=== PATIENT | female | born 1995 | race American Indian/Alaskan Native ===

== ENCOUNTER 2020-02-24 12:19 | Emergency (ER) | payer OTHER ==
[2020-02-24 12:31] VITALS: BP 125/79
--- NOTE | 2020-02-24 13:09 | Event Note ---
ED Screening Note ED Screening Note: 24-year-old female who was Bernie is here visiting presents emergency department complaining of having pelvic pain and an/cramping with vaginal bleeding. Just saw her [employer] in [place] this past Sunday reported to be 9 weeks states that the bleeding and cramping are progressively worsening since the onset. No fevers, chills, sweats no nausea vomiting This initial assessment/diagnostic orders/clinical plan/treatment(s) is/are subject to change based on patients health status, clinical progression and re- assessment by fellow clinical providers in the ED. Further treatment and workup at subsequent clinical providers discretion. Patient/guardian urged not to elope from the ED as their condition may be serious if not clinically assessed and managed. Initial orders include: Labs, urinalysis, ultrasound
[2020-02-24 14:06] LABS: Basophils % (Auto) 0.6 % (0.0-1.8); Eosinophils # (Auto) 0.1 K/mm3 (0.0-0.4); Eosinophils % (Auto) 1.7 % (0.0-4.3); Hemoglobin 13.6 gm/dl (10.1-14.3); Lymphocytes # (Auto) 1.1 K/mm3 (1.2-5.4); Lymphocytes % (Auto) 18.1 % (13.4-35.0); Mean Corpuscular HGB Conc 33 % (30-34); Mean Corpuscular Volume 84 fl (79-97); Monocytes # (Auto) 0.8 K/mm3 (0.0-0.8); Monocytes % (Auto) 13.6 % (0.0-7.3); Platelet Count 329 K/mm3 (140-440); Red Blood Count 4.87 M/mm3 (3.65-5.03); Red Cell Distribution Width 13.3 % (13.2-15.2)
[2020-02-24 14:24] LABS: Bacteria,Urine 3+ /HPF (Negative); Bilirubin,Urine NEG (Negative); Blood,Urine LG (Negative); Color,Urine Yellow (Yellow); Mucus,Urine FEW /HPF; Urobilinogen,Urine < 2.0 mg/dL (<2.0)
[2020-02-24 14:33] LABS: RBC,Urine > 182.0 /HPF (0.0-6.0)
--- NOTE | 2020-02-24 15:24 | Ultrasound Report ---
ULTRASOUND OBSTETRIC INDICATION / CLINICAL INFORMATION: Vaginal bleeding. Clinical Gestational Age (GA) in weeks, days: 9, 6 TECHNIQUE: Transabdominal and Transvaginal. COMPARISON: None available. FINDINGS: GESTATIONAL SAC: None seen. YOLK SAC: None seen. EMBRYO/FETUS: No intrauterine . Endometrial stripe is mildly thickened measuring 1.4 cm. ADNEXA: No adnexal mass or fluid collection. FREE FLUID: None. ADDITIONAL FINDINGS: None. IMPRESSION: 1. No intrauterine . 2. No adnexal mass or fluid collection. 3. Mildly prominent endometrial complex. Signer Name: Katlyn Ortiz MD Signed: 02/24/2020 3:20 PM Workstation Name: [id number]
[2020-02-24] MEDS ORDERED: LIDOCAINE-MPF (1%) 10 MG/1 ML VIAL 5 ML INFILTRATI ONE (16:57)
[2020-02-24] MEDS ORDERED: HYDROcodone/ACETAMINOPHEN 5-325 MG TAB PO ONE (16:57)
--- NOTE | 2020-02-24 16:58 | Emergency Department Report ---
ED Female HPI - General Chief complaint: Vaginal Bleeding Stated complaint: BAD CRAMPS POSSIBLE MISCARRIAGE Time Seen by Provider: 02/24/20 16:49 Source: patient Mode of arrival: Ambulatory Limitations: No Limitations - Related Data Previous Rx's Medication Instructions Recorded Last Taken Type Ciprofloxacin HCl [Ciprofloxacin 500 mg PO BID 7 Days #14 tab 02/24/20 Unknown Rx TAB] Ibuprofen [Motrin 800 MG tab] 800 mg PO Q8HR PRN #30 tablet 02/24/20 Unknown Rx Allergies Allergy/AdvReac Type Severity Reaction Status Date / Time No Known Allergies Allergy Unverified 02/24/20 13:09 ED Review of Systems ROS: Stated complaint: BAD CRAMPS POSSIBLE MISCARRIAGE Other details as noted in HPI ED Past Medical Hx - Past Medical History Previous Medical History?: No - Surgical History Past Surgical History?: No - Social History Smoking Status: Never Smoker Substance Use Type: None - Medications Home Medications: Home Medications Medication Instructions Recorded Confirmed Last Taken Type Ciprofloxacin HCl [Ciprofloxacin 500 mg PO BID 7 Days #14 tab 02/24/20 Unknown Rx TAB] Ibuprofen [Motrin 800 MG tab] 800 mg PO Q8HR PRN #30 tablet 02/24/20 Unknown Rx ED Physical Exam - General Limitations: No Limitations ED Course Vital Signs 02/24/20 12:27 Temperature 99.2 F Pulse Rate 99 H Respiratory 16 Rate Blood Pressure 125/79 [Right] O2 Sat by Pulse 97 Oximetry ED Medical Decision Making - Lab Data Result diagrams: 02/24/20 13:44 - Radiology Data Radiology results: report reviewed, image reviewed Findings Reporting MD: Katlyn Ortiz Dictation Time: February 24, 2020 14:20 Patient Care Technician Instructor: Not available Data Security Coordinator Date: ULTRASOUND OBSTETRIC INDICATION / CLINICAL INFORMATION: Vaginal bleeding. Clinical Gestational Age (GA) in weeks, days: 9, 6 TECHNIQUE: Transabdominal and Transvaginal. COMPARISON: None available. FINDINGS: GESTATIONAL SAC: None seen. YOLK SAC: None seen. EMBRYO/FETUS: No intrauterine . Endometrial stripe is mildly thickened measuring 1.4 cm. ADNEXA: No adnexal mass or fluid collection. FREE FLUID: None. ADDITIONAL FINDINGS: None. IMPRESSION: 1. No intrauterine . 2. No adnexal mass or fluid collection. 3. Mildly prominent endometrial complex. Signer Name: Katlyn Ortiz MD Signed: 02/24/2020 2:20 PM Workstation Name: [id number] Findings Reporting MD: Katlyn Ortiz Dictation Time: February 24, 2020 14:20 Patient Care Technician Instructor: Not available Data Security Coordinator Date: ULTRASOUND OBSTETRIC INDICATION / CLINICAL INFORMATION: Vaginal bleeding. Clinical Gestational Age (GA) in weeks, days: 9, 6 TECHNIQUE: Transabdominal and Transvaginal. COMPARISON: None available. FINDINGS: GESTATIONAL SAC: None seen. YOLK SAC: None seen. EMBRYO/FETUS: No intrauterine . Endometrial stripe is mildly thickened measuring 1.4 cm. ADNEXA: No adnexal mass or fluid collection. FREE FLUID: None. ADDITIONAL FINDINGS: None. IMPRESSION: 1. No intrauterine . 2. No adnexal mass or fluid collection. 3. Mildly prominent endometrial complex. Signer Name: Katlyn Ortiz MD Signed: 02/24/2020 2:20 PM Workstation Name: [id number] Critical care attestation.: If time is entered above; I have spent that time in minutes in the direct care of this critically ill patient, excluding procedure time. ED Disposition Condition: Stable Referrals: PRIMARY CARE, [Primary Care Provider] - 3-5 Days
--- NOTE | 2020-02-24 17:43 | Emergency Department Report ---
ED Female HPI - General Chief complaint: Vaginal Bleeding Stated complaint: BAD CRAMPS POSSIBLE MISCARRIAGE Time Seen by Provider: 02/24/20 16:49 Source: patient Mode of arrival: Ambulatory Limitations: No Limitations - History of Present Illness Initial comments: 24-year-old female who is here visiting presents emergency department complaining of having pelvic pain and an/cramping with vaginal bleeding. Just saw her [employer] in [place] this past Sunday reported to be 9 weeks states that the bleeding and cramping are progressively worsening since the onset. No fevers, chills, sweats no nausea vomiting, pt is G2, P0, A1 Complaint: vaginal bleeding - Related Data Previous Rx's Medication Instructions Recorded Last Taken Type Acetaminophen [Tylenol] 1,000 mg PO Q6HR PRN #30 tablet 02/24/20 Unknown Rx Ciprofloxacin HCl [Ciprofloxacin 500 mg PO BID 7 Days #14 tab 02/24/20 Unknown Rx TAB] Allergies Allergy/AdvReac Type Severity Reaction Status Date / Time No Known Allergies Allergy Unverified 02/24/20 13:09 ED Review of Systems ROS: Stated complaint: BAD CRAMPS POSSIBLE MISCARRIAGE Other details as noted in HPI Constitutional: denies: chills, fever Eyes: denies: eye pain, eye discharge, vision change ENT: denies: ear pain, throat pain Respiratory: denies: cough, shortness of breath, wheezing Cardiovascular: denies: chest pain, palpitations Endocrine: no symptoms reported Gastrointestinal: abdominal pain. denies: nausea, vomiting, diarrhea, constipation Genitourinary: other (vaginal bleeding ). denies: urgency, dysuria, frequency, hematuria, discharge Musculoskeletal: denies: back pain, joint swelling, arthralgia Skin: denies: rash, lesions Neurological: denies: headache, weakness, paresthesias Psychiatric: denies: anxiety, depression Hematological/Lymphatic: denies: easy bleeding, easy bruising ED Past Medical Hx - Past Medical History Previous Medical History?: No - Surgical History Past Surgical History?: No - Social History Smoking Status: Never Smoker Substance Use Type: None - Medications Home Medications: Home Medications Medication Instructions Recorded Confirmed Last Taken Type Acetaminophen [Tylenol] 1,000 mg PO Q6HR PRN #30 tablet 02/24/20 Unknown Rx Ciprofloxacin HCl [Ciprofloxacin 500 mg PO BID 7 Days #14 tab 11/10/20 Unknown Rx TAB] ED Physical Exam - General Limitations: No Limitations General appearance: alert, in no apparent distress - Head Head exam: Present: atraumatic, normocephalic - Eye Eye exam: Present: normal appearance, EOMI Pupils: Present: normal accommodation - ENT ENT exam: Present: mucous membranes moist - Neck Neck exam: Present: normal inspection, full ROM. Absent: tenderness - Respiratory Respiratory exam: Present: normal lung sounds bilaterally. Absent: respiratory distress, wheezes, stridor, chest wall tenderness - Cardiovascular Cardiovascular Exam: Present: regular rate, normal rhythm, normal heart sounds. Absent: systolic murmur, diastolic murmur, rubs, gallop - GI/Abdominal GI/Abdominal exam: Present: soft, tenderness (bilat lower abd ), normal bowel sounds. Absent: distended, guarding, rebound, rigid, bruit, hernia - Rectal Rectal exam: Present: deferred - External exam: Present: other (exam deferred by patient ) - Extremities Exam Extremities exam: Present: normal inspection, full ROM. Absent: tenderness - Back Exam Back exam: Present: normal inspection, full ROM. Absent: tenderness, CVA tenderness (R), CVA tenderness (L) - Neurological Exam Neurological exam: Present: alert, oriented X3, CN II-XII intact, normal gait, reflexes normal - Psychiatric Psychiatric exam: Present: normal affect, normal mood - Skin Skin exam: Present: warm, dry, intact, normal color. Absent: rash ED Course Vital Signs 02/24/20 12:27 Temperature 99.2 F Pulse Rate 99 H Respiratory 16 Rate Blood Pressure 125/79 [Right] O2 Sat by Pulse 97 Oximetry ED Medical Decision Making - Lab Data Result diagrams: 02/24/20 13:44 Labs 02/24/20 02/24/20 02/24/20 13:44 13:44 13:59 WBC 5.9 RBC 4.87 Hgb 13.6 Hct 41.0 MCV 84 MCH 28 MCHC 33 RDW 13.3 Plt Count 329 Lymph % (Auto) 18.1 [place] % (Auto) 13.6 H Eos % (Auto) 1.7 Baso % (Auto) 0.6 Lymph # (Auto) 1.1 L [place] # (Auto) 0.8 Eos # (Auto) 0.1 Baso # (Auto) 0.0 Seg Neutrophils % 66.0 Seg Neutrophils # 3.9 HCG, Quant 4508 H Urine Color Yellow Urine Turbidity Slightly-cloudy Urine pH 6.0 Ur Specific [place] 1.015 Urine Protein 30 mg/dl Urine Glucose (UA) Neg Urine Ketones Neg Urine Blood Lg Urine Nitrite Pos Urine Bilirubin Neg Urine Urobilinogen < 2.0 Ur Leukocyte Esterase Lg Urine WBC (Auto) 56.0 H Urine RBC (Auto) > 182.0 U Epithel Cells (Auto) 4.0 Urine Bacteria (Auto) 3+ Urine Mucus Few Blood Type Ord Rhogam Gestat Weeks 02/24/20 Unknown WBC RBC Hgb Hct MCV MCH MCHC RDW Plt Count Lymph % (Auto) [place] % (Auto) Eos % (Auto) Baso % (Auto) Lymph # (Auto) [place] # (Auto) Eos # (Auto) Baso # (Auto) Seg Neutrophils % Seg Neutrophils # HCG, Quant Urine Color Urine Turbidity Urine pH Ur Specific [place] Urine Protein Urine Glucose (UA) Urine Ketones Urine Blood Urine Nitrite Urine Bilirubin Urine Urobilinogen Ur Leukocyte Esterase Urine WBC (Auto) Urine RBC (Auto) U Epithel Cells (Auto) Urine Bacteria (Auto) Urine Mucus Blood Type O POSITIVE Ord Rhogam Gestat Weeks Rh pos - Radiology Data Radiology results: report reviewed, image reviewed Findings Reporting MD: Katlyn Ortiz Dictation Time: February 24, 2020 14:20 Telephone Sales Representative: Not available Site Acquisition Specialist Date: ULTRASOUND OBSTETRIC INDICATION / CLINICAL INFORMATION: Vaginal bleeding. Clinical Gestational Age (GA) in weeks, days: 9, 6 TECHNIQUE: Transabdominal and Transvaginal. COMPARISON: None available. FINDINGS: GESTATIONAL SAC: None seen. YOLK SAC: None seen. EMBRYO/FETUS: No intrauterine . Endometrial stripe is mildly thickened measuring 1.4 cm. ADNEXA: No adnexal mass or fluid collection. FREE FLUID: None. ADDITIONAL FINDINGS: None. IMPRESSION: Findings Reporting MD: Katlyn Ortiz Dictation Time: February 24, 2020 14:20 Telephone Sales Representative: Not available Site Acquisition Specialist Date: ULTRASOUND OBSTETRIC INDICATION / CLINICAL INFORMATION: Vaginal bleeding. Clinical Gestational Age (GA) in weeks, days: 9, 6 TECHNIQUE: Transabdominal and Transvaginal. COMPARISON: None available. FINDINGS: GESTATIONAL SAC: None seen. YOLK SAC: None seen. EMBRYO/FETUS: No intrauterine . Endometrial stripe is mildly thickened measuring 1.4 cm. ADNEXA: No adnexal mass or fluid collection. FREE FLUID: None. ADDITIONAL FINDINGS: None. IMPRESSION: 1. No intrauterine . 2. No adnexal mass or fluid collection. 3. Mildly prominent endometrial complex. Signer Name: Katlyn Ortiz MD Signed: 02/24/2020 2:20 PM Workstation Name: [id number] Signer Name: Katlyn Ortiz MD Signed: 02/24/2020 2:20 PM Workstation Name: [id number] - Medical Decision Making US no 1. No intrauterine . 2. No adnexal mass or fluid collection. 3. Mildly prominent endometrial complex. , ua: nitrates, wbc, leuk, rbs, blood type 0 Pos, pt denies concern for STI, decline vaginal exam, there is 0/10 abd pain at this time, no n/v, pt is tolerating po intake , plan: abx , analgesic, follow up OBGYN in 2 days for repeat H/H. return to emergency if symptoms worsen, pt verbalized agreement and understanding of same. pt for dc to home in stable condition at this time. DX Miscarriage , possible diff dx: Threatened Miscarriage, ectopic , UTI, pyelonephritis. Critical care attestation.: If time is entered above; I have spent that time in minutes in the direct care of this critically ill patient, excluding procedure time. ED Disposition Clinical Impression: Miscarriage, Threatened miscarriage in early UTI (urinary tract infection) Qualifiers: Urinary tract infection type: acute cystitis Hematuria presence: without hematuria Qualified Code(s): N30.00 - Acute cystitis without hematuria Disposition: DC-01 TO HOME OR SELFCARE Is pt being admited?: No Does the pt Need Aspirin: No Condition: Stable Instructions: Vaginal Bleeding During , First Trimester, Urinary Tract Infection, Adult, Miscarriage Prescriptions: Acetaminophen [Tylenol] 1,000 mg PO Q6HR PRN #30 tablet PRN Reason: pain Ciprofloxacin HCl [Ciprofloxacin TAB] 500 mg PO BID 7 Days #14 tab Referrals: CK JAMISON MD [Staff Physician] - 3-5 Days Forms: Work/School Release Form(ED) Time of Disposition: 17:54
== END 2020-02-24 17:59 | disposition home or self-care (01) ==
LOC: ED 12:19
DX: O23.41 Unspecified infection of urinary tract in pregnancy, first trimester (principal); O03.9 Complete or unspecified spontaneous abortion without complication; Z79.899 Other long term (current) drug therapy; Z3A.01 Less than 8 weeks gestation of pregnancy
CPT/HCPCS: 36415; 76801; 76817; 81001; 84702; 85025; 86900; 86901; 87086; 96372; 99284; J0696